=== PATIENT | male | born 1980 | race Hispanic/Latino ===

== ENCOUNTER 2021-02-03 10:04 | Emergency (ER) | payer SELFPAY ==
[2021-02-03] MEDS ORDERED: Tetracaine 0.5% PF 4 ML BOT ONE (10:22)
[2021-02-03] MEDS ORDERED: Fluorescein Opthalmic Strip ONE (10:23)
[2021-02-03] MEDS ORDERED: Tobramycin Sulfate 0.3% Ophth Susp 5 ml Bottle ONE (10:47)
== END 2021-02-03 11:05 | disposition home or self-care (01) ==
LOC: MADERS 10:04
DX: T15.02XA Foreign body in cornea, left eye, initial encounter (principal); T15.01XA Foreign body in cornea, right eye, initial encounter
CPT/HCPCS: 65210